=== PATIENT | male | born 1985 | race Two or more races ===

== ENCOUNTER 2023-10-19 10:25 | Emergency (ER) | payer OTHER ==
[~2023-10-19] VITALS: Ht 167.6 cm; Wt 86.2 kg
[2023-10-19 11:58] LABS: BASOPHILS % (AUTO) 0.2 % (0.0-2.0); EOSINOPHILS # (AUTO) 0.1 K/uL (0.0-0.7); EOSINOPHILS % (AUTO) 0.6 % (0.0-6.0); HEMATOCRIT 50 % (39-51); HEMOGLOBIN 16.4 g/dL (13.5-17.5); LYMPHOCYTES # (AUTO) 1.1 K/uL (0.8-4.8); LYMPHOCYTES % (AUTO) 9.3 % (20.0-44.0); MEAN CORPUSCULAR HEMOGLOBIN 30 PG (26.0-33.0); MEAN CORPUSCULAR HGB CONC 33 g/dl (31.0-36.0); MEAN CORPUSCULAR VOLUME 90 fL (80-96); MONOCYTES # (AUTO) 1.2 K/uL (0.1-1.30); MONOCYTES % (AUTO) 9.6 % (2.0-12.0); NEUTROPHILS # (AUTO) 9.8 K/uL (1.8-8.9); NEUTROPHILS % (AUTO) 80.3 % (43.0-81.0); PLATELET COUNT (AUTO) 214 K/uL (150-450); RED BLOOD CELL COUNT(AUTO) 5.52 MIL/uL (4.5-6.0); RED CELL DISTRIBUTION WIDTH 13.7 % (11.5-15.0); WHITE BLOOD COUNT (AUTO) 12.2 K/uL (4.3-11.0)
[2023-10-19 12:05] LABS: CALCIUM, SERUM 9.8 mg/dL (8.5-10.1); POTASSIUM 4.1 mmol/L (3.5-5.1)
[2023-10-19] MEDS: IV NS 0.9% 500 ML BAG IV ONE (12:05)
[2023-10-19] MEDS: KETOROLAC TROMETHAMINE 15 MG/ML VIAL IV ONE (12:05)
[2023-10-19] MEDS ORDERED: KETOROLAC TROMETHAMINE 15 MG/ML VIAL ONE (12:08)
[2023-10-19] MEDS ORDERED: DOCU-141 PO (12:57)
[2023-10-19] MEDS ORDERED: CIPR500T5 PO (12:57)
[2023-10-19] MEDS ORDERED: METR500T PO (12:57)
[2023-10-19] MEDS ORDERED: CIPROFLOXACIN HCL 500 MG TABLET ONE ×2 (13:01→13:04)
[2023-10-19] MEDS ORDERED: METRONIDAZOLE 500 MG TABLET ONE ×2 (13:01→13:04)
[2023-10-19] MEDS: CIPROFLOXACIN HCL 250 MG TABLET PO ONE (13:06)
[2023-10-19] MEDS: METRONIDAZOLE 500 MG TABLET PO ONE (13:07)
[2023-10-19 13:10] VITALS: BP 127/72; TEMP 98; O2SAT 98
== END 2023-10-19 13:10 | disposition home or self-care (01) ==
LOC: ER 11:36
DX: K57.92 Diverticulitis of intestine, part unspecified, without perforation or abscess without bleeding (principal); K40.90 Unilateral inguinal hernia, without obstruction or gangrene, not specified as recurrent; K76.0 Fatty (change of) liver, not elsewhere classified; R16.0 Hepatomegaly, not elsewhere classified
CPT/HCPCS: 99285; 74176; 96374; 85025; 80048; 83605; 36415; J7040; A4223; J1885